=== PATIENT | female | born 1980 | race American Indian/Alaskan Native ===

== ENCOUNTER 2020-12-26 03:11 | Emergency (ER) | payer OTHER ==
[2020-12-26 04:41] LABS: Bacteria,Urine 1+ /HPF (Negative); Bilirubin,Urine NEG (Negative); Blood,Urine MOD (Negative); Color,Urine Yellow (Yellow); Mucus,Urine 2+ /HPF; Urobilinogen,Urine < 2.0 mg/dL (<2.0)
[2020-12-26 06:13] LABS: Basophils # (Auto) 0.1 K/mm3 (0.0-0.1); Basophils % (Auto) 1.2 % (0.0-1.8); Eosinophils # (Auto) 0.1 K/mm3 (0.0-0.4); Eosinophils % (Auto) 0.9 % (0.0-4.3); Hematocrit 27.9 % (30.3-42.9); Hemoglobin 9.2 gm/dl (10.1-14.3); Lymphocytes # (Auto) 2.6 K/mm3 (1.2-5.4); Lymphocytes % (Auto) 30.3 % (13.4-35.0); Mean Corpuscular HGB Conc 33 % (30-34); Mean Corpuscular Volume 78 fl (79-97); Monocytes # (Auto) 0.4 K/mm3 (0.0-0.8); Monocytes % (Auto) 5.2 % (0.0-7.3); Platelet Count 424 K/mm3 (140-440); Red Blood Count 3.57 M/mm3 (3.65-5.03)
[2020-12-26 06:14] LABS: Blood Urea Nitrogen 8 mg/dL (7-17); Hemolysis Index 0; Red Cell Distribution Width 20.4 % (13.2-15.2)
[2020-12-26 06:20] LABS: INR 0.9 (0.87-1.13)
[2020-12-26 06:21] LABS: Partial Thromboplastin Time 24.5 Sec. (24.2-36.6)
[2020-12-26 06:25] LABS: BUN/Creatinine Ratio 11
--- NOTE | 2020-12-26 08:38 | Ultrasound Report ---
FIRSTTRIMESTER OBSTETRIC ULTRASOUND ULTRASOUND OB TRANSVAGINAL HISTORY: Vaginal bleeding during , spotting that started yesterday. COMPARISON: None. TECHNIQUE: Routine transabdominal OB ultrasound performed. FINDINGS: The uterus is anteverted and mildly enlarged measuring 12.1 x 6.9 x 7.3 cm. An intrauterine is identified. No heart tones could be demonstrated on Doppler interrogation consistent with f etal demise. Amniotic fluid volume appears decreased. There is also suggestion of a moderate to large subchorionic hemorrhage posteriorly. measurements were difficult to obtain given low amniotic fluid. Estimated age on ultrasound is 12 weeks 6 days. Cervix is closed and measures 3-4 cm in length . The right ovary is enlarged measuring 4.5 x 3.8 x 5.0 cm and contains a 4.1 cm simple appearing cyst. The left ovary is unremarkable measuring 2.9 x 2.1 x 2.3 cm. IMPRESSION Intrauterine demise. See above. 4.1 cm right ovarian cyst. Signer Name: Stuart Tamayo Jr, MD Signed: 12/26/2020 8:34 AM Workstation Name: [id number]
--- NOTE | 2020-12-26 08:41 | Emergency Department Report ---
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 THUS PT CAME TO ER. Patient is ambulatory, nontoxic and [id number] on exam. MD Complaint: vaginal bleeding -: Sudden, days(s) Severity: mild Quality: cramping Consistency: intermittent Worsens with: none Are you Now?: Yes Associated Symptoms: denies other symptoms - Related Data Sexually active: Yes : 2 Para: 0 A: 1 (STILLBIRTH) Allergies Allergy/AdvReac Type Severity Reaction Status Date / Time No Known Allergies Allergy Unverified 12/26/20 03:37 ED Review of Systems ROS: Stated complaint: 14 WEEKS ;VAGINAL BLEEDING Other details as noted in HPI Comment: All other systems reviewed and negative ED Past Medical Hx - Past Medical History Previous Medical History?: No - Surgical History Past Surgical History?: No - Family History Family history: no significant - Social History Smoking Status: Never Smoker Substance Use Type: None ED Physical Exam - General Limitations: No Limitations General appearance: alert, in no apparent distress - Head Head exam: Present: atraumatic, normocephalic - Eye Eye exam: Present: normal appearance - ENT ENT exam: Present: mucous membranes moist - Neck Neck exam: Present: normal inspection - Respiratory Respiratory exam: Present: normal lung sounds bilaterally. Absent: respiratory distress - Cardiovascular Cardiovascular Exam: Present: regular rate, normal rhythm. Absent: systolic murmur, diastolic murmur, rubs, gallop - GI/Abdominal GI/Abdominal exam: Present: soft, normal bowel sounds - Extremities Exam Extremities exam: Present: normal inspection - Back Exam Back exam: Present: normal inspection - Neurological Exam Neurological exam: Present: alert, oriented X3 - Psychiatric Psychiatric exam: Present: normal affect, normal mood - Skin Skin exam: Present: warm, dry, intact, normal color. Absent: rash ED Course Vital Signs 12/26/20 12/26/20 12/26/20 03:34 06:20 09:13 Temperature 98.8 F 98.8 F Pulse Rate 89 79 88 Respiratory 17 16 17 Rate Blood Pressure 123/79 Blood Pressure 128/76 137/84 [Right] O2 Sat by Pulse 99 100 99 Oximetry ED Medical Decision Making - Lab Data Result diagrams: 12/26/20 05:12 12/26/20 05:12 - Radiology Data Radiology results: report reviewed, image reviewed SEE REPORT - Medical Decision Making Labs 12/26/20 12/26/20 12/26/20 04:22 05:12 05:12 WBC 8.7 RBC 3.57 L Hgb 9.2 L Hct 27.9 L MCV 78 L MCH 26 L MCHC 33 RDW 20.4 H Plt Count 424 Lymph % (Auto) 30.3 [place] % (Auto) 5.2 Eos % (Auto) 0.9 Baso % (Auto) 1.2 Lymph # (Auto) 2.6 [place] # (Auto) 0.4 Eos # (Auto) 0.1 Baso # (Auto) 0.1 Seg Neutrophils % 62.4 Seg Neutrophils # 5.4 PT 12.0 L INR 0.90 APTT 24.5 Sodium Potassium Chloride Carbon Dioxide Anion Gap BUN Creatinine Estimated GFR BUN/Creatinine Ratio Glucose Calcium HCG, Quant Urine Color Yellow Urine Turbidity Slightly-cloudy Urine pH 5.0 Ur Specific [place] 1.020 Urine Protein 30 mg/dl Urine Glucose (UA) Neg Urine Ketones Neg Urine Blood Mod Urine Nitrite Neg Urine Bilirubin Neg Urine Urobilinogen < 2.0 Ur Leukocyte Esterase Sm Urine WBC (Auto) 3.0 Urine RBC (Auto) 5.0 U Epithel Cells (Auto) 4.0 Urine Bacteria (Auto) 1+ Urine Mucus 2+ Blood Type Ord Rhogam Gestat Weeks 12/26/20 12/26/20 12/26/20 05:12 05:12 07:42 WBC RBC Hgb Hct MCV MCH MCHC RDW Plt Count Lymph % (Auto) [place] % (Auto) Eos % (Auto) Baso % (Auto) Lymph # (Auto) [place] # (Auto) Eos # (Auto) Baso # (Auto) Seg Neutrophils % Seg Neutrophils # PT INR APTT Sodium 135 L Potassium 4.0 Chloride 100.3 Carbon Dioxide 24 Anion Gap 15 BUN 8 Creatinine 0.7 Estimated GFR > 60 BUN/Creatinine Ratio 11 Glucose 85 Calcium 9.0 HCG, Quant 53287 H Urine Color Urine Turbidity Urine pH Ur Specific [place] Urine Protein Urine Glucose (UA) Urine Ketones Urine Blood Urine Nitrite Urine Bilirubin Urine Urobilinogen Ur Leukocyte Esterase Urine WBC (Auto) Urine RBC (Auto) U Epithel Cells (Auto) Urine Bacteria (Auto) Urine Mucus Blood Type B POSITIVE Ord Rhogam Gestat Weeks Rh pos Vital Signs 12/26/20 12/26/20 03:34 06:20 Temperature 98.8 F 98.8 F Pulse Rate 89 79 Respiratory 17 16 Rate Blood Pressure 123/79 Blood Pressure 128/76 [Right] O2 Sat by Pulse 99 100 Oximetry Labs noted. UA noted. Rh+. Ultrasound noted. DR SINCLA[employer] CONSULT[employer] INSURANCE OB NOTIFIED OF FINDINGS Dr. Ignacio states that the patient should be discharged from the ER and can follow-up with her POLE SHAVER today. Patient understands that she should call the OB as soon as she leaves the ER. Patient has been updated on plan of care as defined by the specialist. Patient being discharged with pelvic rest and emergent POLE SHAVER follow-up. Patient verbalizes understanding of discharge plan of care. On discharge patient is eating crackers, drinking juice ambulatory and in no acute distress. - Differential Diagnosis RO AB Critical care attestation.: If time is entered above; I have spent that time in minutes in the direct care of this critically ill patient, excluding procedure time. ED Disposition Clinical Impression: Threatened Disposition: DC-01 TO HOME OR SELFCARE Is pt being admited?: No Does the pt Need Aspirin: No Condition: Stable Instructions: Threatened Miscarriage Additional Instructions: NOTHING IN VAGINA NO TAMPONS NO SEX REST CALL OB ON DISCHARGE FROM ER YOU NEED FOLLOW UP THIS WEEK MOTRIN OR TYLENOL FOR PAIN Referrals: SPENCER SHEFFIELD MD [Staff Physician] - 3-5 Days Time of Disposition: 08:45
[2020-12-26 09:14] VITALS: BP 137/84
== END 2020-12-26 09:14 | disposition home or self-care (01) ==
LOC: ED 03:11
DX: O20.0 Threatened abortion (principal); Z3A.14 14 weeks gestation of pregnancy
CPT/HCPCS: 36415; 76801; 76817; 80048; 81001; 84702; 85025; 85610; 85730; 86900; 86901

== ENCOUNTER 2020-12-30 05:17 | Emergency (ER) | payer OTHER ==
[2020-12-30 05:31] VITALS: BP 124/91
[2020-12-30] MEDS ORDERED: HYDROcodone/ACETAMINOPHEN 5-325 MG TAB PO ONE (05:53)
[2020-12-30] MEDS ORDERED: ONDANSETRON 4 MG ODT TAB PO ONE (05:53)
--- NOTE | 2020-12-30 05:53 | Emergency Department Report ---
<JABIER OSCAR - Last Filed: 12/30/20 08:47> ED HPI - General Chief complaint: Vaginal Bleeding Stated complaint: VAGINAL BLEEDING/MISCARRIAGE Time Seen by Provider: 12/30/20 05:40 - Related Data Home Medications Medication Instructions Recorded Confirmed Last Taken Vit 14/Iron Fum/Folic 1 tab PO DAILY 12/26/20 12/26/20 Unknown [Completenate Tablet Chew] Previous Rx's Medication Instructions Recorded Last Taken Type Ibuprofen [Motrin 800 MG tab] 800 mg PO Q8HR PRN #15 tablet 12/30/20 Unknown Rx Allergies Allergy/AdvReac Type Severity Reaction Status Date / Time No Known Allergies Allergy Unverified 12/26/20 17:45 ED Past Medical Hx - Medications Home Medications: Home Medications Medication Instructions Recorded Confirmed Last Taken Type Vit 14/Iron Fum/Folic 1 tab PO DAILY 12/26/20 12/26/20 Unknown History [Completenate Tablet Chew] Ibuprofen [Motrin 800 MG tab] 800 mg PO Q8HR PRN #15 tablet 12/30/20 Unknown Rx ED Course - Consultations Consultation #1: 12/30/20 08:[address] Diane Cisneros at [facility]. She recommends misoprostol along 400 mcg 200 in each cheek and allowed to swallow. She states that she can have ibuprofen for pain management and to follow-up in 1 week in the clinic. ED Medical Decision Making - Lab Data Result diagrams: 12/30/20 05:48 12/30/20 05:48 - Medical Decision Making Patient CBC is within normal limits. Spoke to Dr. Diane Cisneros from [facility]. She recommends 400 mcg of misopro stol in 200 to each cheek allowed to swallow. She recommends ibuprofen for pain management and to follow-up in her clinic in 1 week. Discussed treatment plan with patient. She states that her cramping has improved. She is assessing her bleeding at this time. ED Disposition Clinical Impression: Complete miscarriage Disposition: DC-01 TO HOME OR SELFCARE Is pt being admited?: No Does the pt Need Aspirin: No Condition: Stable Instructions: Miscarriage, Wnio-ki-Sjhy, Managing Loss Additional Instructions: Take ibuprofen as needed for pain management. Follow-up with your BARROW WORKER HELPER at [facility] in 1 week. Expect to continue bleeding for few days. You may still have pelvic cramping. Prescriptions: Ibuprofen [Motrin 800 MG tab] 800 mg PO Q8HR PRN #15 tablet PRN Reason: Pain , Severe (7-10) Referrals: PRIMARY CARE, [Primary Care Provider] - 3-5 Days [facility] [Provider Group] - 3-5 Days <NYA KRUGER - Last Filed: 12/30/20 19:26> ED HPI - General Source: patient Mode of arrival: Ambulatory Limitations: No Limitations - History of Present Illness Initial comments: Patient is a 40-year-old female presents emergency room with complaints of passing products of conception that occurred this morning. She states that she woke up this morning with lower abdominal cramping and vaginal bleeding. She states she then passed what she believes is a fetus and tissue. She states that she is changing her pad approximately every hour. Patient was diagnosed with intrauterine demise on 12/26/2020. She was scheduled to have a D&C on 12/31/2020. 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 She states her last menstrual cycle was 09/19/2020. No past medical history. No allergies to medications. /P:0/A:2 ED Review of Systems ROS: Stated complaint: VAGINAL BLEEDING/MISCARRIAGE Other details as noted in HPI Comment: All other systems reviewed and negative ED Past Medical Hx - Past Medical History Previous Medical History?: Yes Hx Headaches / Migraines: Yes (Migraines) - Surgical History Past Surgical History?: No - Social History Smoking Status: Never Smoker Substance Use Type: None ED Physical Exam - General Limitations: No Limitations General appearance: alert, in no apparent distress - Head Head exam: Present: atraumatic, normocephalic - Eye Eye exam: Present: normal appearance - ENT ENT exam: Present: mucous membranes moist - Respiratory Respiratory exam: Present: normal lung sounds bilaterally. Absent: respiratory distress, wheezes, rales, rhonchi, stridor, chest wall tenderness, accessory muscle use, decreased breath sounds, prolonged expiratory - Cardiovascular Cardiovascular Exam: Present: regular rate, normal rhythm, normal heart sounds. Absent: systolic murmur, diastolic murmur, rubs, gallop - GI/Abdominal GI/Abdominal exam: Present: soft, tenderness (mild suprapubic), normal bowel sounds. Absent: distended, guarding, rebound, rigid - Neurological Exam Neurological exam: Present: alert, oriented X3 - Psychiatric Psychiatric exam: Present: normal affect, normal mood - Skin Skin exam: Present: warm, dry, intact ED Course Vital Signs 12/30/20 12/30/20 12/30/20 05:28 07:13 08:13 Temperature 98.4 F Pulse Rate 102 H Respiratory 18 18 16 Rate Blood Pressure 124/91 O2 Sat by Pulse 98 Oximetry ED Medical Decision Making - Lab Data Result diagrams: 12/30/20 05:48 12/30/20 05:48 Lab Results 12/30/20 12/30/20 12/30/20 Range/Units 05:48 05:48 05:48 WBC 9.5 (4.5-11.0) K/mm3 RBC 3.99 (3.65-5.03) M/mm3 Hgb 10.2 (10.1-14.3) gm/dl Hct 31.5 (30.3-42.9) % MCV 79 (79-97) fl MCH 26 L (28-32) pg MCHC 32 (30-34) % RDW 20.6 H (13.2-15.2) % Plt Count 486 H (140-440) K/mm3 Lymph % (Auto) 25.0 (13.4-35.0) % [place] % (Auto) 4.0 (0.0-7.3) % Eos % (Auto) 0.8 (0.0-4.3) % Baso % (Auto) 1.3 (0.0-1.8) % Lymph # (Auto) 2.4 (1.2-5.4) K/mm3 [place] # (Auto) 0.4 (0.0-0.8) K/mm3 Eos # (Auto) 0.1 (0.0-0.4) K/mm3 Baso # (Auto) 0.1 (0.0-0.1) K/mm3 Seg Neutrophils % 68.9 (40.0-70.0) % Seg Neutrophils # 6.5 (1.8-7.7) K/mm3 Sodium 135 L (137-145) mmol/L Potassium 3.7 (3.6-5.0) mmol/L Chloride 99.8 (98-107) mmol/L Carbon Dioxide 23 (22-30) mmol/L Anion Gap 16 mmol/L BUN 8 (7-17) mg/dL Creatinine 0.7 (0.6-1.2) mg/dL Estimated GFR > 60 ml/min BUN/Creatinine Ratio 11 % Glucose 92 (65-100) mg/dL Calcium 9.4 (8.4-10.2) mg/dL Total Bilirubin 0.30 (0.1-1.2) mg/dL AST 12 (5-40) units/L ALT 11 (7-56) units/L Alkaline Phosphatase 62 (35-129) units/L Total Protein 7.5 (6.3-8.2) g/dL Albumin 4.3 (3.9-5) g/dL Albumin/Globulin Ratio 1.3 % HCG, Quant 3659 H (0-4) mIU/mL Urine Color (Yellow) Urine Turbidity (Clear) Urine pH Ur Specific [place] Urine Protein Urine Glucose (UA) (Negative) mg/dL Urine Ketones (Negative) mg/dL Urine Blood Urine Nitrite Ur Reducing Substances Urine Bilirubin (Negative) Urine Ictotest Urine Urobilinogen Ur Leukocyte Esterase Urine WBC (Auto) (0.0-6.0) /HPF Urine RBC (Auto) (0.0-6.0) /HPF U Epithel Cells (Auto) (0-13.0) /HPF Urine Mucus /HPF 12/30/20 Range/Units Unknown WBC (4.5-11.0) K/mm3 RBC (3.65-5.03) M/mm3 Hgb (10.1-14.3) gm/dl Hct (30.3-42.9) % MCV (79-97) fl MCH (28-32) pg MCHC (30-34) % RDW (13.2-15.2) % Plt Count (140-440) K/mm3 Lymph % (Auto) (13.4-35.0) % [place] % (Auto) (0.0-7.3) % Eos % (Auto) (0.0-4.3) % Baso % (Auto) (0.0-1.8) % Lymph # (Auto) (1.2-5.4) K/mm3 [place] # (Auto) (0.0-0.8) K/mm3 Eos # (Auto) (0.0-0.4) K/mm3 Baso # (Auto) (0.0-0.1) K/mm3 Seg Neutrophils % (40.0-70.0) % Seg Neutrophils # (1.8-7.7) K/mm3 Sodium (137-145) mmol/L Potassium (3.6-5.0) mmol/L Chloride (98-107) mmol/L Carbon Dioxide (22-30) mmol/L Anion Gap mmol/L BUN (7-17) mg/dL Creatinine (0.6-1.2) mg/dL Estimated GFR ml/min BUN/Creatinine Ratio % Glucose (65-100) mg/dL Calcium (8.4-10.2) mg/dL Total Bilirubin (0.1-1.2) mg/dL AST (5-40) units/L ALT (7-56) units/L Alkaline Phosphatase (35-129) units/L Total Protein (6.3-8.2) g/dL Albumin (3.9-5) g/dL Albumin/Globulin Ratio % HCG, Quant (0-4) mIU/mL Urine Color Red (Yellow) Urine Turbidity Cloudy (Clear) Urine pH TNR Ur Specific [place] TNR Urine Protein TNR Urine Glucose (UA) Color interference (Negative) mg/dL Urine Ketones Color interference (Negative) mg/dL Urine Blood TNR Urine Nitrite TNR Ur Reducing Substances TNR Urine Bilirubin Color interference (Negative) Urine Ictotest TNR Urine Urobilinogen TNR Ur Leukocyte Esterase TNR Urine WBC (Auto) 10.0 H (0.0-6.0) /HPF Urine RBC (Auto) > 182.0 (0.0-6.0) /HPF U Epithel Cells (Auto) < 1.0 (0-13.0) /HPF Urine Mucus Few /HPF - Radiology Data Radiology results: report reviewed Ordering Physician: JESSIE SAMUELS III, MD Date of Service: 12/30/20 Procedure(s): US OB >= 14 wk fetus add gest Accession Number(s): [id number] cc: JESSIE SAMUELS III, MD EXAMINATION: Obstetrical Ultrasound INDICATION: Vaginal bleeding in early COMPARISON: Obstetrical ultrasound, 12/26/2020 FINDINGS: The uterus is mildly enlarged measuring 8.4 x 5.3 x 6.8 cm. No intrauterine is identified. The endometrial canal and stripe is difficult to assess on today's study and appear heterogeneous. The bilateral adnexal regions appear within normal limits. There is a 3.4 cm right adnexal cyst. Doppler flow is demonstrated to both adnexal regions. There is no free pelvic fluid. IMPRESSION: 1. Heterogeneous appearance of the uterus without intrauterine identified. 2. Right adnexal cyst. Signer Name: Aziza Anglin MD Signed: 12/30/2020 9:07 AM Workstation Name: [id number] Transcribed By: SHLOMO Dictated By: Aziza Anglin MD Electronically Authenticated By: Aziza Anglin MD Signed Date/Time: 12/30/20906 DD/ 2 TD/TT: - Medical Decision Making Patient is a 40-year-old female presents emergency room with complaints of passing products of conception that occurred this morning. She states that she woke up this morning with lower abdominal cramping and vaginal bleeding. She states she then passed what she believes is a fetus and tissue. She states that she is changing her pad approximately every hour. Patient was diagnosed with intrauterine demise on 12/26/2020. She was scheduled to have a D&C on 12/31/2020. She states that her [facility] WORK[facility] HELPER is [facility]. She states her last menstrual cycle was 09/19/2020. No past medical history. No allergies to medications. /P:0/A:2. vitals are stable. on exam suprapubic abd ttp, no guarding, no rebound, no rigidity, no peritoneal signs. pt brought products of conception which shows obvious fetus and signs of tissue like sac likely consistent with placenta/products of conception. pts labs, UA, and US are pending signed out to Joelle Oscar PA-C pending labs, UA, US Critical care attestation.: If time is entered above; I have spent that time in minutes in the direct care of this critically ill patient, excluding procedure time. ED Disposition Is pt being admited?: No Does the pt Need Aspirin: No
[2020-12-30 06:29] LABS: Alanine Aminotransferase 11 units/L (7-56); Albumin 4.3 g/dL (3.9-5); Blood Urea Nitrogen 8 mg/dL (7-17); Calcium 9.4 mg/dL (8.4-10.2); Hemolysis Index 2
[2020-12-30 06:39] LABS: BUN/Creatinine Ratio 11
[2020-12-30 07:19] LABS: Basophils # (Auto) 0.1 K/mm3 (0.0-0.1); Basophils % (Auto) 1.3 % (0.0-1.8); Eosinophils # (Auto) 0.1 K/mm3 (0.0-0.4); Eosinophils % (Auto) 0.8 % (0.0-4.3); Hematocrit 31.5 % (30.3-42.9); Hemoglobin 10.2 gm/dl (10.1-14.3); Lymphocytes # (Auto) 2.4 K/mm3 (1.2-5.4); Mean Corpuscular HGB Conc 32 % (30-34); Mean Corpuscular Volume 79 fl (79-97); Monocytes # (Auto) 0.4 K/mm3 (0.0-0.8); Platelet Count 486 K/mm3 (140-440); Red Blood Count 3.99 M/mm3 (3.65-5.03)
[2020-12-30 07:21] LABS: Red Cell Distribution Width 20.6 % (13.2-15.2)
[2020-12-30 07:59] LABS: Bilirubin,Urine Color Interference (Negative); Color,Urine Red (Yellow)
[2020-12-30 08:04] LABS: Mucus,Urine FEW /HPF
[2020-12-30 08:05] LABS: Blood,Urine TNR (Negative); PH,Urine TNR (5.0-7.0); Protein,Urine TNR mg/dL (Negative); RBC,Urine > 182.0 /HPF (0.0-6.0); Urobilinogen,Urine TNR mg/dL (<2.0)
--- NOTE | 2020-12-30 09:11 | Ultrasound Report ---
EXAMINATION: Obstetrical Ultrasound INDICATION: Vaginal bleeding in early COMPARISON: Obstetrical ultrasound, 12/26/2020 FINDINGS: The uterus is mildly enlarged measuring 8.4 x 5.3 x 6.8 cm. No intrauterine is identified. The endometrial canal and stripe is difficult to assess on today's study and appear heterogeneous. The bilateral adnexal regions appear within normal limits. There is a 3.4 cm right adnexal cyst. Dopp ler flow is demonstrated to both adnexal regions. There is no free pelvic fluid. IMPRESSION: 1. Heterogeneous appearance of the uterus without intrauterine identified. 2. Right adnexal cyst. Signer Name: Aziza Anglin MD Signed: 12/30/2020 9:07 AM Workstation Name: [id number]
[2020-12-30 09:27] LABS: Ictotest,Urine TNR (Negative)
[2020-12-30] MEDS ORDERED: miSOPROStol 200 MCG TAB PO ONE (10:00)
== END 2020-12-30 09:43 | disposition home or self-care (01) ==
LOC: ED 05:17
DX: O03.9 Complete or unspecified spontaneous abortion without complication (principal); G43.909 Migraine, unspecified, not intractable, without status migrainosus; Z3A.00 Weeks of gestation of pregnancy not specified; Z79.1 Long term (current) use of non-steroidal anti-inflammatories (NSAID); Z79.899 Other long term (current) drug therapy
CPT/HCPCS: 36415; 76810; 76817; 80053; 81001; 84702; 85025; 87086; Q0162